=== PATIENT | male | born 1990 | race Two or more races ===

== ENCOUNTER 2018-02-24 00:18 | Emergency (ER) | payer SELFPAY ==
[2018-02-24] MEDS ORDERED: diPHENhydraMINE IV* 50 MG/ML 1 ml VIAL (BENADRYL) ONE (00:41)
[2018-02-24] MEDS ORDERED: methylPREDNISolone 125 MG* 2 ML VIAL ONE (00:42)
[2018-02-24] MEDS ORDERED: Famotidine IV* 10 MG/ML 2 ML (20 mg) ONE (00:42)
[2018-02-24] MEDS ORDERED: diPHENhydraMINE IV* 50 MG/ML 1 ml VIAL (BENADRYL) SLOW PUSH ONE (01:10)
[2018-02-24] MEDS ORDERED: Famotidine IV* 10 MG/ML 2 ML (20 mg) IV SLOW PU ONE (01:11)
[2018-02-24] MEDS ORDERED: NS 0.9% 1000 ML* 1,000 ML IV ONE (01:11)
[2018-02-24] MEDS ORDERED: methylPREDNISolone 125 MG* 2 ML VIAL IV ONE (01:11)
--- NOTE | 2018-02-24 01:44 | ED ---
Allergic Reaction/Systemic - HPI Summary HPI Summary: A 27 y/o male presents to ED c/o diffuse hives. As per triage, "Pt got bit by a tick a couple months ago, had to be removed, pt did some cocaine last night around 2100, and a couple days ago, has had hives since". According to the patient, he is experiencing hives diffusely across his body for the past 2 days , however, it has progressively became work. He noted that he took nothing for hives, however, he he uses cocaine sometimes. He stated that he had nasal congestion, however, denies any cough. He noted that he has had alelrgic reactions in the past but they were temporary and small. He hasn't been to the MD's in 6 years. The patient continued on to stated that he has been feeling extremity depressed (never fully diagnosed). He stated that he has a lot of stuff going on in life, however, he does have family and support. He additionally denies any HI or SI. Never had this reaction with cocaine. - History of Current Complaint Chief Complaint: EDAllergicReaction Time Seen by Provider: 02/24/18 00:32 Hx Obtained From: Patient Onset/Duration: Sudden Onset, Started days ago, Still Present Timing: Constant, Lasting Days Severity Currently: None Pain Intensity: 0 Pain Scale Used: 0-10 Numeric Location: Diffuse Character: Hives Alleviating Factor(s): Nothing - Allergies/Home Medications Allergies/Adverse Reactions: Allergies Allergy/AdvReac Type Severity Reaction Status Date / Time No Known Allergies Allergy Verified 02/24/18 00:27 PMH/Surg Hx/FS Hx/Imm Hx Endocrine/Hematology History: Denies: Hx Diabetes Sensory History: Reports: Hx Contacts or Glasses Opthamlomology History: Reports: Hx Contacts or Glasses Infectious Disease History: No Infectious Disease History: Denies: Traveled Outside the [place] in Last 30 Days - Family History Known Family History: Positive: Other - POSITIVE: CHF Negative: Blood Disorder - no bleding d/os - Social History Alcohol Use: Occasionally Substance Use Type: Reports: None Smoking Status (MU): Heavy Every Day Tobacco Smoker Review of Systems Negative: Fever Positive: Other - POSITIVE: Nasaal congestion Negative: Cough All Other Systems Reviewed And Are Negative: Yes Physical Exam - Summary Physical Exam Summary: GENERAL: Patient is a well-developed and nourished male who is lying comfortable in the stretcher. Patient is not in any acute respiratory distress. HEAD AND FACE: Normocephalic EYES: PERRLA, EOMI x 2. EARS: Hearing grossly intact. MOUTH: Oropharynx within normal limits. Non-swollen midline NECK: Supple, trachea is midline, no adenopathy, no JVD, no carotid bruit. CHEST: Symmetric, no tenderness at palpation LUNGS: Clear to auscultation bilaterally. No wheezing or crackles. Lungs are clear. CVS: Regular rate and rhythm, S1 and S2 present, no murmurs or gallops appreciated. ABDOMEN: Soft, non-tender. Bowel sounds are normal. No abdominal abnormal pulsations. EXTREMITIES: Full ROM in all major joints, no edema, no cyanosis or clubbing. NEURO: Alert and oriented x 3. No acute neurological deficits. Speech is normal and follows commands. SKIN: Diffuse hives across face, trunk, lower and upper extremities Triage Information Reviewed: Yes Vital Signs On Initial Exam: Initial Vitals Temp Pulse Resp BP Pulse Ox 98.3 F 96 18 132/82 98 02/24/18 00:24 02/24/18 00:24 02/24/18 00:24 02/24/18 00:24 02/24/18 00:24 Vital Signs Reviewed: Yes Diagnostics - Vital Signs Vital Signs Temp Pulse Resp BP Pulse Ox 02/24/18 00:24 98.3 F 96 18 132/82 98 - Laboratory Lab Statement: Any lab studies that have been ordered have been reviewed, and results considered in the medical decision making process. Allergic Reaction Course/Dx - Course Course Of Treatment: A 27 y/o male presents to ED c/o diffuse hives. Patient was treated with Benadryl, Pepcid, Solu-Medrol and IV fluids. Patient was observed in ED for an extended period of time and much improvement was seen. Patient will be send home with Benadryl, Epipen, Famotidine and Deltasone. I discussed results with patient and he reports feeling better. He is hemodynamically stable and safe for discharge. 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 - Diagnoses Provider Diagnoses: Hives Discharge - Sign-Out/Discharge Documenting (check all that apply): Patient Departure - DISCHARGE - Discharge Plan Condition: Stable Disposition: HOME Prescriptions: diphenhydrAMINE HCl [Benadryl] 25 mg PO QID #24 capsule EPINEPHrine [Epipen 2-Ponce] 0.3 mg IM ONCE #1 inj Famotidine [Acid Controller] 20 mg PO BID #20 tablet predniSONE [Deltasone 20 MG TAB] 40 mg PO DAILY #8 tablet Patient Education Materials: Food Allergy (ED), Anaphylaxis (ED) Referrals: No Primary Care Phys,NOPCP [Primary Care Provider] - Additional Instructions: Follow up with deli clerk in 1-3 days. RETURN TO THE EMERGENCY DEPARTMENT FOR CHANGING OR WORSENING SYMPTOMS. - Billing Disposition and Condition Condition: STABLE Disposition: Home - Attestation Statements Document Initiated by Yamile: Yes Documenting Scribe: Surjit Narayan Provider For Whom Yamile is Documenting (Include Credential): Radha Arboleda MD Scribe Attestation: Surjit Huggins scribed for Radha Arboleda MD on 02/24/18 at 0554. Scribe Documentation Reviewed: Yes Provider Attestation: The documentation as recorded by the Surjit mary accurately reflects the service I personally performed and the decisions made by Radha blanco MD
[2018-02-24 05:35] VITALS: BP 125/70
== END 2018-02-24 05:25 | disposition home or self-care (01) ==
LOC: ED 00:18
DX: R09.81 Nasal congestion (principal); L50.9 Urticaria, unspecified; F17.210 Nicotine dependence, cigarettes, uncomplicated
CPT/HCPCS: 96374; 96375; 99282; J1200; J2930

== ENCOUNTER 2018-10-01 16:07 | Emergency (ER) | payer SELFPAY ==
[2018-10-01] MEDS ORDERED: Tetan/Diph/Pertus SYR(Tdap)* 0.5 ML SYR(BOOSTRIX) use SYR IM ONE (16:51)
[2018-10-01] MEDS ORDERED: Bupivacaine 0.5% W/EPI SDV* 10 ML VIAL INJ ONE (18:09)
[2018-10-01] MEDS ORDERED: Sulfamethox/Trimethoprim DS 800/160* TAB PO ONE (18:47)
--- NOTE | 2018-10-01 18:48 | ED ---
Laceration/Wound HPI - HPI Summary HPI Summary: Patient complains of accidentally stabbing himself in the right thigh with a knife while at work. Patient was trying to open a can with a knife which slipped off and pierced lateral right thigh. Tetanus status unsure. Bleeding controlled. Denies any other pain injury or symptoms. - History of Current Complaint Stated Complaint: "I STABBED MYSELF IN THE LEG" PER PT Time Seen by Provider: 10/01/18 16:49 Hx Obtained From: Patient Mechanism of Injury: Sharp/Blunt Trauma Onset Severity: Severe Current Severity: Severe Pain Intensity: 8 Pain Scale Used: 0-10 Numeric Associated Signs & Symptoms: Pain - Allergy/Home Medications Allergies/Adverse Reactions: Allergies Allergy/AdvReac Type Severity Reaction Status Date / Time No Known Allergies Allergy Verified 10/01/18 16:19 PMH/Surg Hx/FS Hx/Imm Hx Endocrine/Hematology History: Denies: Hx Anticoagulant Therapy, Hx Diabetes Cardiovascular History: Denies: Hx Pacemaker/ICD History: Denies: Hx Dialysis Sensory History: Reports: Hx Contacts or Glasses Opthamlomology History: Reports: Hx Contacts or Glasses EENT History: Denies: Hx Deafness Neurological History: Denies: Hx Dementia Psychiatric History: Denies: Hx Autism - Immunization History Date of Tetanus Vaccine: UNSURE Date of Influenza Vaccine: UNSURE Infectious Disease History: No Infectious Disease History: Denies: Traveled Outside the [place] in Last 30 Days - Family History Known Family History: Positive: Other - POSITIVE: CHF Negative: Blood Disorder - no bleding d/os - Social History Alcohol Use: Occasionally Substance Use Type: Reports: None Smoking Status (MU): Light Every Day Tobacco Smoker Review of Systems Constitutional: Negative Eyes: Negative ENT: Negative Cardiovascular: Negative Respiratory: Negative Gastrointestinal: Negative Genitourinary: Negative Musculoskeletal: Negative Skin: Other Neurological: Negative Psychological: Normal All Other Systems Reviewed And Are Negative: Yes Physical Exam - Summary Physical Exam Summary: 4 cm long by 4 cm deep Laceration to lateral right thigh. PMS intact distally. Triage Information Reviewed: Yes Vital Signs On Initial Exam: Initial Vitals Temp Pulse Resp BP Pulse Ox 98.1 F 89 16 135/87 96 10/01/18 16:15 10/01/18 16:15 10/01/18 16:15 10/01/18 16:15 10/01/18 16:15 Vital Signs Reviewed: Yes Appearance: Positive: Well-Appearing Skin: Positive: Warm Head/Face: Positive: Normal Head/Face Inspection Eyes: Positive: Normal Neck: Positive: Supple Respiratory/Lung Sounds: Positive: Clear to Auscultation Cardiovascular: Positive: Normal Abdomen Description: Positive: Nontender Musculoskeletal: Positive: Normal Neurological: Positive: Normal Psychiatric: Positive: Normal AVPU Assessment: Alert - [place] Coma Scale Best Eye Response: 4 - Spontaneous Best Motor Response: 6 - Obeys Commands Best Verbal Response: 5 - Oriented Coma Scale Total: 15 Procedures - Laceration/Wound Repair 1 Location: lower extremity Description: Linear Anesthesia: Local, Marcaine Length, Depth and Shape: 5cm x 4cm Betadine Prep?: Yes Irrigated w/ Saline (ccs): 1,000 Laceration/Wound Explored: clean Debridement: minimal Number of Sutures: 6 - 4.0 ethilon Layer Closure?: No Sterile Dressing Applied?: No Diagnostics - Vital Signs Vital Signs Temp Pulse Resp BP Pulse Ox 10/01/18 16:15 98.1 F 89 16 135/87 96 - Laboratory Lab Statement: Any lab studies that have been ordered have been reviewed, and results considered in the medical decision making process. Laceration Repair Course/Dx - Course Course Of Treatment: Patient complains of accidentally stabbing himself in the right thigh with a knife while at work. Patient was trying to open a can with a knife which slipped off and pierced lateral right thigh. Tetanus status unsure. Bleeding controlled. Denies any other pain injury or symptoms. Physical exam:4 cm long by 4 cm deep Laceration to lateral right thigh. PMS intact distally. Vital signs within normal limits. Wound cleaned extensively and sutured - Clinical Impression Provider Diagnoses: Laceration Discharge - Sign-Out/Discharge Documenting (check all that apply): Patient Departure Patient Received Moderate/Deep Sedation with Procedure: No - Discharge Plan Condition: Stable Disposition: HOME Prescriptions: Sulfamethox/Trimethoprim DS* [Bactrim DS 800/160 TAB*] 1 tab PO BID 10 Days #20 tab Patient Education Materials: Care For Your Stitches (ED), Laceration (ED) Forms: *Work Release Referrals: No Primary Care Phys,NOPCP [Primary Care Provider] - Additional Instructions: Take antibiotics as directed. Sutures out in 10 days. Starting tomorrow you may wash with warm running water and soap. Do not submerge underwater as in swimming for 5 days. Return to the ED for any new or worsening symptoms. - Billing Disposition and Condition Condition: STABLE Disposition: Home
[2018-10-01] MEDS ORDERED: Bupivacaine 0.5% W/EPI SDV* 30 ML VIAL ONE (19:00)
[2018-10-01 19:24] VITALS: BP 133/77
== END 2018-10-01 19:23 | disposition home or self-care (01) ==
LOC: ED 16:07
DX: S71.111A Laceration without foreign body, right thigh, initial encounter (principal); W26.0XXA Contact with knife, initial encounter; Y99.0 Civilian activity done for income or pay; F17.210 Nicotine dependence, cigarettes, uncomplicated
CPT/HCPCS: 12002; 90471; 90715; 99282; A9270-GY